=== PATIENT | female | born 1950 | race Caucasian/White ===

== ENCOUNTER 2017-04-04 09:25 | Emergency (ER) | payer BC ==
[~2017-04-04] VITALS: Ht 170.2 cm; Wt 85.0 kg
[~2017-04-04 09:25] MED LIST: ASPI-664 PO; INSU100I17 SQ; LANT3I SC; LISI2.5T59 PO; METF1000 PO; METF500T4 PO; METO-335 PO
[2017-04-04 09:28] VITALS: Ht 170.2 cm; Wt 85.0 kg
[2017-04-04] MEDS ORDERED: KETOROLAC 60 MG INJ IM STA (09:51)
--- NOTE | 2017-04-04 10:12 | ERD ---
ER Documentation Chief Complaint Chief Complaint dry cough, chest congestion and generalized body pain HPI 66y/o female patient with history of type 2 diabetes mellitus well controlled, presents to the emergency department c/o sudden onset of generalized arthralgia and malaise that started 1 day ago. The pain is dull, rated 6/10. The symptoms are probably caused by a viral illness. Aggravating factors: Strenuous physical activity. Alleviating factors: Ibuprofen and rest. Denies fever, chills, N/V/D. No recent history of previous episodes. Treatment attempted: Ibuprofen with adequate control of the pain. Previous evaluation: None. ROS SYSTEMIC symptoms: no fever, chills, no night sweats, no weight loss EYE symptoms: No blurred vision, no eye discharge OTOLARYNGEAL symptoms: No hearing loss. No ear pain, no sore throat CARDIOVASCULAR symptoms: No chest pain or discomfort, no palpitations. PULMONARY symptoms: No dyspnea, no cough, no wheezing. GASTROINTESTINAL symptoms: No abdominal pain, no nausea, no vomiting, no diarrhea MUSCULOSKELETAL symptoms: Generalized arthralgias and muscle aches. NEUROLOGY symptoms: No confusion, no syncope, no numbness or tingling. SKIN no rashes Medications Home Meds Active Scripts Ciprofloxacin Hcl* (Ciprofloxacin Hcl*) 250 Mg Tablet, 250 MG PO BID for 7 Days , #14 TAB Prov:SHERRI FRANCO MD 04/04/17 Hydrocodone/Acetaminophen ([place] 5-325 Tablet) 1 Each Tablet, 1 TAB PO Q6H Y for PAIN, #20 TAB Prov:SHERRI FRANCO MD 04/04/17 Ibuprofen* (Motrin*) 600 Mg Tab, 600 MG PO Q8, #30 TAB Prov:SHERRI FRANCO MD 04/04/17 Reported Medications Aspirin (Low Dose Aspirin) 81 Mg Tablet.dr, 162 MG PO DAILY, #30 TAB 02/12/16 Insulin Glargine* (Lantus*) 100 Unit/Ml Soln, 20 UNIT SC QHS, #1 VIAL 02/12/16 Insulin Glulisine (Apidra Solostar) 100 Unit/1 Ml Insuln.pen, 8 UNIT SQ BID, #1 TUB 02/12/16 Metformin Hcl* (Metformin Hcl*) 1,000 Mg Tablet, 1000 MG PO WITH BREAKFAST, #30 TAB 02/12/16 Metformin Hcl* (Metformin Hcl*) 500 Mg Tablet, 500 MG PO WITH LUNCH DINNER, #30 TAB 02/12/16 Lisinopril* (Lisinopril*) 2.5 Mg Tablet, 2.5 MG PO DAILY, #30 TAB 02/12/16 Metoprolol Succinate* (Toprol XL*) 25 Mg Tab.sr.24h, 25 MG PO DAILY, #30 TAB 02/12/16 Allergies Allergies: Coded Allergies: No Known Allergies (Verified Allergy, Unknown, 02/13/16) PMhx/Soc History of Surgery: Yes (CS x 1, right knee surgery) Anesthesia Reaction: No Hx Neurological Disorder: No Hx Respiratory Disorders: No Hx Cardiac Disorders: Yes (HTN) Hx Psychiatric Problems: No Hx Miscellaneous Medical Probl: No Hx Alcohol Use: No Hx Substance Use: No Hx Tobacco Use: No Smoking Status: Never smoker Physical Exam Vitals Vital Signs Date Time Temp Pulse Resp B/P Pulse Ox O2 Delivery O2 Flow Rate FiO2 04/04/17 09:28 98.6 102 18 130/58 99 Physical Exam Patient is in no acute distress, vital signs stable. Alert and fully oriented. EYES: PERRLA, EOMI, Sclera and conjunctiva appear normal. EARS: Canals clear, tympanic membranes WNL THROAT: Normal oropharynx. NECK: Supple, No lymphadenopathy. Full ROM without pain or tenderness. HEART: RRR, no rubs, murmurs, clicks or gallops. LUNGS: Clear to auscultation. ABDOMEN: Soft, non-tender without masses or hepatosplenomegaly. EXTREMITIES: No edema bilaterally. BACK: Full ROM, no deformity, normal back exam NEURO: Cranial nerves grossly intact, no motor or sensory deficit Results 24 hrs Laboratory Tests Test 04/04/17 11:05 Urine Color YELLOW Urine Clarity CLEAR Urine pH 5.0 Urine Specific Ericson 1.027 Urine Ketones 1+mg/dL Urine Nitrite NEGATIVEmg/dL Urine Bilirubin NEGATIVEmg/dL Urine Urobilinogen NEGATIVEmg/dL Urine Leukocyte Esterase TRACELeu/ul Urine Microscopic RBC 2/HPF Urine Microscopic WBC 74/HPF Urine Squamous Epithelial Cells FEW/HPF Urine Bacteria FEW/HPF Urine Mucus FEW/HPF Urine Hemoglobin NEGATIVEmg/dL Urine Glucose 3+mg/dL Urine Total Protein NEGATIVEmg/dl Current Medications Medications (Trade) Dose Ordered Sig/Abby Route PRN Reason Start Time Stop Time Status Last Admin Dose Admin Ketorolac Tromethamine (Toradol) 60 mg ONCE STAT IM 04/04/17 09:51 04/04/17 09:53 DC 04/04/17 10:00 Procedures/MDM 66y/o female patient with history of type 2 diabetes mellitus, presents to the ED c/o generalized arthralgia for 1 day. Vital signs stable, Physical exam unremarkable. Differential diagnosis include but not limited to: Influenza, viral respiratory infection, UTI, poorly controlled diabetes mellitus, dehydration, electrolyte imbalance. Pertinent Data: UA: Showed pyuria and positive leukocyte esterase Physical examination and clinical presentation consistent most likely with urinary tract infection During the ED course the patient received treatment with Toradol IM presenting overall improvement of the symptoms. Results and clinical impression discussed with the patient who agrees with management. The patient is stable to be treated outpatient and will be discharged home with a Rx for Cipro, ibuprofen 600 mg and Jasper as needed for severe pain Side effects of prescribed medications (headache, rash, nausea, vomiting, diarrhea) were reviewed. Side effects of prescribed opiates (drowsiness, habituation) were reviewed. Side effects of prescribed NSAID medication (GI distress, edema, bleeding, HTN) were reviewed. The patient was instructed to follow up with the primary care provider in the next 48h. If symptoms persist, worsen or new symptoms develop, then patient should return to the ED immediately. Instructions explained and given to patient in [Lithuanian] with acknowledgment and demonstrated understanding. Disclaimer: Inadvertent spelling and grammatical errors are likely due to EHR/ dictation software use and do not reflect on the overall quality of patient care. Also, please note that the electronic time recorded on this note does not necessarily reflect the actual time of the patient encounter. Departure Diagnosis: Primary Impression: UTI (urinary tract infection) Condition: Stable Patient Instructions: Understanding Urinary Tract Infections (UTIs) Additional Instructions: Thank you very much for allowing us to participate in your care. Your health and safety is our top priority at [facility]. Have prescriptions filled and follow precisely the directions on the label. Follow-up with primary care provider during the next 4 days and bring all the information and medications prescribed. If illness has not improved in 2 days, then make an appointment with primary care provider. If the provider is unavailable, return to the Emergency Department immediately. SHERRI FRANCO MD Apr 04, 2017 10:11
[2017-04-04] MEDS ORDERED: HYDR-906 PO (10:35)
[2017-04-04] MEDS ORDERED: IBUP-1542 PO (10:35)
[2017-04-04 12:20] LABS: ADD UMIC YES; UR ASCORBIC ACID NEGATIVE (NEGATIVE); UR BACTERIA FEW /HPF (NONE SEEN); UR BILIRUBIN (Dip) NEGATIVE (NEGATIVE); UR BLOOD (Dip) NEGATIVE (NEGATIVE); UR CLARITY CLEAR (CLEAR); UR COLOR YELLOW (YELLOW); UR GLUCOSE (Dip) 3+ mg/dL (NEGATIVE); UR KETONES (Dip) 1+ mg/dL (NEGATIVE); UR LEUKOCYTE ESTERASE (Dip) TRACE Leu/ul (NEGATIVE); UR MUCUS FEW /HPF (NONE SEEN); UR NITRITE (Dip) NEGATIVE (NEGATIVE); UR RBC 2 /HPF (0-5); UR SPECIFIC GRAVITY (Dip) 1.027 (1.003-1.030); UR SQUAMOUS EPITHELIAL CELL FEW /HPF (FEW); UR TOTAL PROTEIN (Dip) NEGATIVE (NEGATIVE); UR UROBILINOGEN (Dip) NEGATIVE (NEGATIVE)
[2017-04-04] MEDS ORDERED: CIPR-193 PO (12:35)
== END 2017-04-04 12:46 | disposition home or self-care (01) ==
LOC: FTE 09:25
DX: N39.0 Urinary tract infection, site not specified (principal); E11.9 Type 2 diabetes mellitus without complications; I10 Essential (primary) hypertension; Z79.4 Long term (current) use of insulin; Z79.82 Long term (current) use of aspirin; Z79.84 Long term (current) use of oral hypoglycemic drugs
CPT/HCPCS: 81001; 96372; J1885; Z7502

== ENCOUNTER 2018-01-18 11:32 | Day surgery (SDC) | END 2018-01-18 15:52 | disposition home or self-care (01) ==

== ENCOUNTER 2018-09-16 23:22 | Inpatient (IN) | payer OTHER, BC ==
[~2018-09-16] VITALS: Ht 170.2 cm; Wt 91.2 kg
[~2018-09-16 23:22] MED LIST changes: -ASPI-664 PO; +ASPI81TA52 PO; +HYDR-4011 PO; +INSU100I33 SC; -LANT3I SC; -METF1000 PO; +METF500T24 PO; -METF500T4 PO
--- NOTE | 2018-09-16 23:45 | ERD ---
ER Documentation Chief Complaint Chief Complaint CP x2 hours w/ mild dizziness. no SOB/n/v HPI 67-year-old woman presents with pressure-like substernal chest pain radiating to the back x2 hours beginning after eating food. She did not use her aspirin today and is worried about heart attack. She states she had mild shortness of breath, mild nausea but no vomiting, no LOC, no diaphoresis, no headache or blurry vision. Patient denies abdominal pain. ROS All systems reviewed and are negative except as per history of present illness. Medications Home Meds Reported Medications Ascorbic Acid (Vitamin C) 500 Mg Tab, 500 MG PO DAILY, TAB 09/17/18 Multivitamins* (Theragran*) 1 Tab Tab, 1 TAB PO DAILY, TAB 09/17/18 Cholecalciferol* (Vitamin D3*) 1,000 Unit Tablet, 1000 UNIT PO DAILY, TAB 09/17/18 Insulin Degludec (Tresiba Flextouch U-100) 100 Unit/1 Ml Insuln.pen, 20 UNIT SC QHS 09/17/18 Aspirin (Low Dose Aspirin) 81 Mg Tablet.dr, 162 MG PO DAILY, #30 TAB 02/12/16 Insulin Glulisine (Apidra Solostar) 100 Unit/1 Ml Insuln.pen, 8 UNIT SQ BID, #1 TUB 02/12/16 Metformin Hcl* (Metformin Hcl*) 500 Mg Tablet, 500 MG PO WITH BREAKFAST DINNE, #30 TAB 02/12/16 Lisinopril* (Lisinopril*) 2.5 Mg Tablet, 2.5 MG PO DAILY, #30 TAB 02/12/16 Metoprolol Succinate* (Toprol XL*) 25 Mg Tab.sr.24h, 25 MG PO DAILY, #30 TAB 02/12/16 Discontinued Reported Medications Insulin Glargine,Hum.rec.anlog (Basaglar Kwikpen U-100) 100 Unit/1 Ml Insuln.pen, 20 UNIT SC DAILY, EA 01/18/18 Discontinued Scripts Hydrocodone/Acetaminophen ([place] 5-325 Tablet) 1 Each Tablet, 1 TAB PO Q6H PRN for PAIN, #20 TAB Prov:SHERRI FRANCO MD 04/04/17 Allergies Allergies: Coded Allergies: No Known Allergies (Unverified Allergy, Unknown, 09/17/18) PMhx/Soc History of chest pain, hypertension, diabetes mellitus, obesity, dyslipidemia History of Surgery: Yes (RT. KNEE SX., C/S X 1) Anesthesia Reaction: No Hx Neurological Disorder: No Hx Respiratory Disorders: No Hx Cardiac Disorders: No Hx Psychiatric Problems: No Hx Miscellaneous Medical Probl: Yes (HTN, [employer] BMI) Hx Alcohol Use: Yes (SOCIALLY) Hx Substance Use: No Hx Tobacco Use: No FmHx Family History: diabetes Physical Exam Vitals Vital Signs Date Temp Pulse Resp B/P (MAP) Pulse Ox O2 O2 Flow FiO2 Time Delivery Rate 09/17/18 91 18 160/82 100 Room Air 01:12 (108) 09/16/18 94 16 159/67 97 Room Air 23:52 (97) 09/16/18 98.3 105 16 166/64 96 23:29 (98) Physical Exam GENERAL: Well-developed, well-nourished, well-hydrated, in no apparent distress, looks nontoxic in appearance HEENT: Moist mucous membranes, pink conjunctiva, no cervical spine tenderness or step-off deformities, no goiter, no jaundice or icterus, extraocular movements intact without pain. No submandibular induration, and no pharyngeal erythema NEURO: Alert and oriented 3, cranial nerves II through XII intact bilaterally, pupils equal round reactive to light, no focal deficits or facial asymmetry, sensation intact distally Strength 5/5 in upper and lower extremities bilaterally CARDIAC: Regular rate and rhythm, no murmurs rubs or gallops LUNGS: Clear bilaterally no wheezing crackles or stridor ABDOMEN: Soft nontender, no guarding, no rigidity, no rebound, no psoas sign no obturator sign. Normoactive bowel sounds SKIN: Warm and dry to touch, no abrasions, contusions, or hematomas, no lacerations, no ecchymosis, no target lesions, and without ulcers EXTREMITIES: No clubbing cyanosis or edema, calves are bilaterally symmetrical, no Homans sign, no popliteal cord sign. Distal pulses equal and bilateral PSYCH: Normal affect without agitation or irritability Result Diagram: 09/17/18 0014 09/17/18 0014 Results 24 hrs Laboratory Tests Test 09/17/18 00:14 White Blood Count 5.8 10^3/ul Red Blood Count 3.67 10^6/ul Hemoglobin 10.7 g/dl Hematocrit 32.4 % Mean Corpuscular Volume 88.3 fl Mean Corpuscular Hemoglobin 29.2 pg Mean Corpuscular Hemoglobin Concent 33.0 g/dl Red Cell Distribution Width 14.2 % Platelet Count 225 10^3/UL Mean Platelet Volume 11.9 fl Immature Granulocytes % 0.200 % Neutrophils % 61.7 % Lymphocytes % 26.1 % Monocytes % 9.6 % Eosinophils % 1.9 % Basophils % 0.5 % Nucleated Red Blood Cells % 0.0 /100WBC Immature Granulocytes # 0.010 10^3/ul Neutrophils # 3.6 10^3/ul Lymphocytes # 1.5 10^3/ul Monocytes # 0.6 10^3/ul Eosinophils # 0.1 10^3/ul Basophils # 0.0 10^3/ul Nucleated Red Blood Cells # 0.0 10^3/ul Sodium Level 142 mmol/L Potassium Level 4.3 mmol/L Chloride Level 108 mmol/L Carbon Dioxide Level 27 mmol/L Anion Gap 7 Blood Urea Nitrogen 25 mg/dl Creatinine 0.77 mg/dl Est Glomerular Filtrat Rate mL/min > 60 mL/min Glucose Level 336 mg/dl Calcium Level 9.8 mg/dl Total Bilirubin 0.2 mg/dl Direct Bilirubin 0.00 mg/dl Indirect Bilirubin 0.2 mg/dl Aspartate Amino Transf (AST/SGOT) 21 IU/L Alanine Aminotransferase (ALT/SGPT) 21 IU/L Alkaline Phosphatase 61 IU/L Troponin I < 0.012 ng/ml Total Protein 6.3 g/dl Albumin 3.8 g/dl Globulin 2.50 g/dl Albumin/Globulin Ratio 1.52 Lipase 161 U/L Current Medications Medications Dose Sig/Abby Start Time Status Last (Trade) Ordered Route PRN Stop Time Admin Dose Reason Admin Aspirin 324 mg ONCE ONCE 09/17/18 DC 09/17/18 (Aspirin) PO 00:30 09/17/18 00:15 00:31 Sodium 500 ml @ Q1H STAT 09/17/18 DC 09/17/18 Chloride 500 mls/hr IV 00:06 09/17/18 00:16 01:05 Ketorolac 15 mg ONCE STAT 09/17/18 DC 09/17/18 Tromethamine IV 00:06 09/17/18 00:16 (Toradol) 00:07 Procedures/MDM IV line was established patient was placed on shelter monitor rhythm strip revealed a sinus tachycardia at 100 bpm with upright P and T waves. Patient was afebrile EKG performed, read by me revealed a sinus tachycardia at 100 bpm, normal axis, narrow QRS complex, no concerning ST elevations or depressions noted One AP view of the chest performed, read by me reveals no acute infiltrates, normal mediastinum, sharp costophrenic and cardiac borders, no air under the diaphragm. Otherwise unremarkable chest x-ray. Administered aspirin 324 mg p.o. for cardioprotective measures, 500 cc normal saline IV, Toradol 15 mg IV CBC and electrolytes are normal, liver function tests are normal, troponin was negative Patient will be admitted to telemetry setting for continued medical management and cardiology consultation, further interventions, imaging studies, and obtaining specialist consultations deferred to admitting physician Dr Clayton Departure Diagnosis: Primary Impression: Chest pain Chest pain type: unspecified Qualified Codes: R07.9 - Chest pain, unspecified Condition: TITUS Alejandro MD September 16, 2018 23:45
[2018-09-17] VITALS (11 sets, daily range): BP systolic 103–138; BP diastolic 53–64; PULSE 66–92; RESP 16–21; Ht 170.2 cm; Wt 91.2 kg
[2018-09-17] MEDS ORDERED: KETOROLAC 15 MG INJ IV STA (00:06)
[2018-09-17] MEDS ORDERED: SOD CHLORIDE 0.9% 500 ML IV STA (00:06)
[2018-09-17] MEDS ORDERED: ASPIRIN 81 MG TAB PO ONE (00:30)
[2018-09-17] MEDS ORDERED: INSU100I31 SC (01:58)
[2018-09-17] MEDS ORDERED: CHOL100062 PO (01:58)
[2018-09-17] MEDS ORDERED: MULTI PO (01:58)
[2018-09-17] MEDS ORDERED: ASC500 PO (01:58)
[2018-09-17] MEDS ORDERED: GLUCAGON 1 MG INJ IM PRN (04:30)
[2018-09-17] MEDS ORDERED: DEXTROSE 50% 50 ML SYRINGE IV PRN ×2 (04:30)
[2018-09-17] MEDS ORDERED: GLUCOSE GEL 15 GRAM TUBE PO PRN ×2 (04:30)
[2018-09-17] MEDS ORDERED: GLUCOSE GEL 15 GRAM TUBE BUCCAL PRN (04:30)
[2018-09-17] MEDS: INSULIN ASPART [NOVOLOG] 3 ML PEN SC SCH ×4 (07:54→20:56)
[2018-09-17] MEDS: ASPIRIN (EC) 81 MG TAB PO SCH (08:18)
[2018-09-17] MEDS: LISINOPRIL 5 MG TAB PO SCH (08:19)
--- NOTE | 2018-09-17 08:51 | HP ---
DATE OF ADMISSION: 09/17/2018 CHIEF COMPLAINT: Chest pain. HISTORY OF PRESENT ILLNESS: A 67-year-old female with a history of hypertension and type 2 diabetes mellitus who presented to the Emergency Room with complaint of substernal chest heaviness radiating t o her back and lasting about 2 hours after she had dinner at home. This was associated with shortnes s of breath and mild nausea. No vomiting or diaphoresis. The patient denies any previous cardiac hi story. Initial troponin was normal, but repeat troponin was elevated at 0.26. PAST MEDICAL HISTORY: 1. Hypertension. 2. Type 2 diabetes mellitus. PAST SURGICAL HISTORY: Right knee surgery. MEDICATIONS PRIOR TO ADMISSION: 1. Ascorbic acid. 2. Multivitamin. 3. Vitamin D. 4. Insulin. 5. Aspirin. 6. Metformin. 7. Lisinopril. 8. Metoprolol. ALLERGIES: Patient has no known drug allergies. SOCIAL HISTORY: The patient lives at home. She denies tobacco or alcohol use. PHYSICAL EXAMINATION: GENERAL: Well-developed, well-nourished female who is in no apparent distress. VITAL SIGNS: Stable. She is afebrile. HEENT: Extraocular muscles intact. Pupils equal and reactive to light bilaterally. Sclerae are ani cteric. Oropharynx is clear and moist. NECK: Supple, no JVD, no carotid bruits. LUNGS: Clear to auscultation bilaterally. CARDIAC: Regular rate and rhythm. No murmurs, rubs or gallops. ABDOMEN: Soft, nontender, nondistended, normoactive bowel sounds. EXTREMITIES: No clubbing, cyanosis, or edema. NEUROLOGICAL: Nonfocal. LABORATORY DATA: WBC 5.8. Hemoglobin 10.7. Basic metabolic panel is within normal limits. Glucose is elevated at 33 6. First troponin was less than 0.012, repeat troponin was 0.263. ASSESSMENT: 1. A 67-year-old female with acute non-ST elevation myocardial infarction. 2. Hypertension. 3. Type 2 diabetes mellitus. 4. Obesity. PLAN: 1. Admit to telemetry. 2. Resume selective home medications. 3. Cardiology consultation was requested. 4. Keep n.p.o. in anticipation of coronary angiography. Dictated By: DYLON PALMER/DIOR Conf#: [id number] [facility]#: [id number]
[2018-09-17] MEDS ORDERED: METOPROLOL (XL) 25 MG TAB PO SCH (09:00)
[2018-09-17] MEDS: METOPROLOL (XL) 50 MG TAB PO SCH (09:00)
--- NOTE | 2018-09-17 11:24 | CONS ---
Assessment/Plan Assessment/Plan Assessment/Plan (Daily) Assessment HTN HLP NSTEMI Sinus tachy Plan: ASA start statin echo pending venous duplex cath/PCI, dw her in detail benefits and risks and risks of delay, she fully understands and agrees Consultation Date/Type/Reason Admit Date/Time September 17, 2018 at 00:58 Type of Consult Cardiology Date/Time of Note DATE: 09/17/18 TIME: 11:21 Hx of Present Illness admitted with chest pain, found to have elevated troponins, currently free of complaints Constitutional: no complaints Respiratory: no complaints Cardiovascular: no complaints Gastrointestinal: no complaints Musculoskeletal: no complaints Skin: no complaints Neurologic: no complaints Endocrine: no complaints Past Medical History Medical History: diabetes, high cholesterol, hypertension Home Meds Reported Medications Ascorbic Acid (Vitamin C) 500 Mg Tab, 500 MG PO DAILY, TAB 09/17/18 Multivitamins* (Theragran*) 1 Tab Tab, 1 TAB PO DAILY, TAB 09/17/18 Cholecalciferol* (Vitamin D3*) 1,000 Unit Tablet, 1000 UNIT PO DAILY, TAB 09/17/18 Insulin Degludec (Tresiba Flextouch U-100) 100 Unit/1 Ml Insuln.pen, 20 UNIT SC QHS 09/17/18 Aspirin (Low Dose Aspirin) 81 Mg Tablet.dr, 162 MG PO DAILY, #30 TAB 02/12/16 Insulin Glulisine (Apidra Solostar) 100 Unit/1 Ml Insuln.pen, 8 UNIT SQ BID, #1 TUB 02/12/16 Metformin Hcl* (Metformin Hcl*) 500 Mg Tablet, 500 MG PO WITH BREAKFAST DINNE, #30 TAB 02/12/16 Lisinopril* (Lisinopril*) 2.5 Mg Tablet, 2.5 MG PO DAILY, #30 TAB 02/12/16 Metoprolol Succinate* (Toprol XL*) 25 Mg Tab.sr.24h, 25 MG PO DAILY, #30 TAB 02/12/16 Discontinued Reported Medications Insulin Glargine,Hum.rec.anlog (Basaglar Kwikpen U-100) 100 Unit/1 Ml Insuln.pen, 20 UNIT SC DAILY, EA 01/18/18 Discontinued Scripts Hydrocodone/Acetaminophen ([place] 5-325 Tablet) 1 Each Tablet, 1 TAB PO Q6H PRN for PAIN, #20 TAB Prov:CUEVAS-MYRICK,SHERRI MD 04/04/17 Medications Current Medications Diagnostic Test (Pha) (Accu-Chek) 1 ea 02 XX ; Start 09/18/18 at 02:00 Insulin Aspart (Novolog Insulin Pen) NOVOLOG *MODERATE* ALGORITHM WITH MEALS BEDTIME SC ; Start 09/17/18 at 08:00 Aspirin (Halfprin) 162 mg DAILY PO Last administered on 09/17/18at 08:18; Admin Dose 162 MG; Start 09/17/18 at 09:00 Lisinopril (Zestril) 2.5 mg DAILY PO Last administered on 09/17/18at 08:19; Admin Dose 2.5 MG; Start 09/17/18 at 09:00 Miscellaneous Information 1 ea NOTE XX ; Start 09/17/18 at 04:30 Glucose (Glutose) 15 gm Q15M PRN PO DECREASED GLUCOSE; Start 09/17/18 at 04:30 Glucose (Glutose) 22.5 gm Q15M PRN PO DECREASED GLUCOSE; Start 09/17/18 at 04:30 Dextrose (D50w Syringe) 25 ml Q15M PRN IV DECREASED GLUCOSE; Start 09/17/18 at 04:30 Dextrose (D50w Syringe) 50 ml Q15M PRN IV DECREASED GLUCOSE; Start 09/17/18 at 04:30 Glucagon (Glucagen) 1 mg Q15M PRN IM DECREASED GLUCOSE; Start 09/17/18 at 04:30 Glucose (Glutose) 15 gm Q15M PRN BUCCAL DECREASED GLUCOSE; Start 09/17/18 at 04:30 Metoprolol Succinate (Toprol Xl) 50 mg DAILY PO ; Start 09/17/18 at 09:00 Atorvastatin Calcium (Lipitor) 40 mg HS PO ; Start 09/17/18 at 21:00 Allergies: Coded Allergies: No Known Allergies (Unverified Allergy, Unknown, 09/17/18) Family History Significant Family History: hypertension Social History Smoking Status: Never smoker Exam/Review of Systems Vital Signs Vitals Vital Signs Date Temp Pulse Resp B/P (MAP) Pulse Ox O2 O2 Flow FiO2 Time Delivery Rate 09/17/18 83 08:01 09/17/18 98.0 16 131/62 95 Room Air 07:28 (85) Intake and Output 09/16/18 09/16/18 09/17/18 1515:00 23:00 07:00 IntakeIntake Total 0 ml BalanceBalance 0 ml Exam Constitutional: alert, oriented Head: normocephalic, atraumatic Neck: supple Respiratory: clear to auscultation Cardiovascular: regular rate and rhythm Gastrointestinal: soft Musculoskeletal: nl extremities to inspection Extremities: normal pulses Labs Result Diagram: 09/17/18 0014 09/17/18 0014 Results 24hrs Laboratory Tests Test 09/17/18 00:14 09/17/18 05:10 09/17/18 07:53 09/17/18 08:32 White Blood Count 5.8 Red Blood Count 3.67 L Hemoglobin 10.7 L Hematocrit 32.4 L Mean Corpuscular Volume 88.3 Mean Corpuscular 29.2 Hemoglobin Mean Corpuscular 33.0 Hemoglobin Concent Red Cell Distribution 14.2 Width Platelet Count 225 Mean Platelet Volume 11.9 H Immature Granulocytes % 0.200 Neutrophils % 61.7 Lymphocytes % 26.1 Monocytes % 9.6 Eosinophils % 1.9 Basophils % 0.5 Nucleated Red Blood 0.0 Cells % Immature Granulocytes # 0.010 Neutrophils # 3.6 Lymphocytes # 1.5 Monocytes # 0.6 Eosinophils # 0.1 Basophils # 0.0 Nucleated Red Blood 0.0 Cells # Sodium Level 142 Potassium Level 4.3 Chloride Level 108 Carbon Dioxide Level 27 Anion Gap 7 Blood Urea Nitrogen 25 H Creatinine 0.77 Est Glomerular Filtrat > 60 Rate mL/min Glucose Level 336 H Calcium Level 9.8 Total Bilirubin 0.2 Direct Bilirubin 0.00 Indirect Bilirubin 0.2 Aspartate Amino 21 Transf (AST/SGOT) Alanine 21 Aminotransferase (ALT/SG PT) Alkaline Phosphatase 61 Troponin I < 0.012 0.263 *H 0.997 *H Total Protein 6.3 Albumin 3.8 Globulin 2.50 Albumin/Globulin Ratio 1.52 Lipase 161 Bedside Glucose 251 H Imaging Imaging EKG: Sinus tach, non specific changes Medications Medications Current Medications Diagnostic Test (Pha) (Accu-Chek) 1 XX ; Start 09/18/18 at 02:00 Insulin Aspart (Novolog Insulin Pen) NOVOLOG *MODERATE* ALGORITHM WITH MEALS BEDTIME SC ; Start 09/17/18 at 08:00 Aspirin (Halfprin) 162 mg DAILY PO Last administered on 09/17/18at 08:18; Admin Dose 162 MG; Start 09/17/18 at 09:00 Lisinopril (Zestril) 2.5 mg DAILY PO Last administered on 09/17/18at 08:19; Admin Dose 2.5 MG; Start 09/17/18 at 09:00 Miscellaneous Information 1 ea NOTE XX ; Start 09/17/18 at 04:30 Glucose (Glutose) 15 gm Q15M PRN PO DECREASED GLUCOSE; Start 09/17/18 at 04:30 Glucose (Glutose) 22.5 gm Q15M PRN PO DECREASED GLUCOSE; Start 09/17/18 at 04:30 Dextrose (D50w Syringe) 25 ml Q15M PRN IV DECREASED GLUCOSE; Start 09/17/18 at 04:30 Dextrose (D50w Syringe) 50 ml Q15M PRN IV DECREASED GLUCOSE; Start 09/17/18 at 04:30 Glucagon (Glucagen) 1 mg Q15M PRN IM DECREASED GLUCOSE; Start 09/17/18 at 04:30 Glucose (Glutose) 15 gm Q15M PRN BUCCAL DECREASED GLUCOSE; Start 09/17/18 at 04:30 Metoprolol Succinate (Toprol Xl) 50 mg DAILY PO ; Start 09/17/18 at 09:00 Atorvastatin Calcium (Lipitor) 40 mg HS PO ; Start 09/17/18 at 21:00 ASIM GODINEZ MD September 17, 2018 11:24
--- NOTE | 2018-09-17 15:53 | RADRPT ---
Echocardiogram Report Patient Name: Perry FLOWERnt ID: [id number] : 1950 (67y 10m)Study Date: 09/17/2018 10:57:11 AM Gender: FAccession #: [id number] Tech: Ang Santiago [facility] Location: [facility] Ref.Physician: ASIM GODINEZ Height(Cm): BSA: Weight(Kg): Quality: AdequateAccount #: Procedures: Echocardiographic Report: Transthoracic echocardiogram with complete 2D, M-Mode, and doppler examination. Indications: Chest Pain. Measurements: 2D/M Mode Doppler Measurement Value Normal Range Measurement Value Normal Range LVIDd 2D 4.4 [ 3.8 - 5.2 ] cm AV Peak Everardo 1.1 [ 100.0 - 170.0 ] cm/sec LVIDs 2D 2.8 [ 2.2 - 3.5 ] cm AV Peak PG 5.0 [ 2.0 - 9.0 ] mmHg LVPWd 2D 1.3 [ 0.6 - 0.9 ] cm LVOT Peak Everardo 1.0 [ 70.0 - 110.0 ] cm/sec IVSd 2D 1.4 [ 0.6 - 0.9 ] cm LVOT Peak PG 4.0 [ 2.0 - 6.0 ] mmHg AoR Diam 2D 2.7 [ 2.3 - 3.1 ] cm MV E Peak Everardo 0.9 [ 60.0 - 130.0 ] cm/sec EDV 2D 88.6 [ 46.0 - 106.0 ] ml MV A Peak Everardo 1.0 [ 100.0 - 120.0 ] cm/sec ESV 2D 30.9 [ 14.0 - 42.0 ] ml MV E/A 0.9 [ 0.8 - 1.5 ] ratio EF 2D 65.1 [ 54.0 - 74.0 ] percent MV Decel Time 194 [ 104 - 258 ] msec LA Dimen 2D 4.3 [ 2.7 - 3.8 ] cm Lat E` Everardo 0.1 [ 10.0 - 15.0 ] cm/sec Lateral E/E` 9.1 [ 1.0 - 2.0 ] ratio MV E/A 0.9 [ 0.8 - 1.5 ] ratio TR Peak Everardo 3.0 [ 100.0 - 280.0 ] cm/sec TR Peak PG 35.0 mmHg RVSP 43.0 [ 10.0 - 36.0 ] mmHg Findings: Left Ventricle: Normal left ventricular systolic function. Normal left ventricular cavity size. Mild concentric left ventricular hypertrophy. Ejection fraction is visually estimated at 60 %. Tissue Doppler/Mitral Doppler indices are consistent with impaired relaxation (Stage I diastolic dysfunction). Right Ventricle: Normal right ventricular size. Normal right ventricular systolic function. Left Atrium: There is mild enlargement of left atrium. Right Atrium: The right atrium is normal in size. Mitral Valve: Mild mitral leaflet calcification. Mild mitral annular calcification. Trace mitral regurgitation. Aortic Valve: No hemodynamically significant aortic stenosis by doppler. Aortic cusps appear mildly calcified. Trace aortic valve regurgitation. Tricuspid Valve: Normal appearance of the tricuspid valve. Estimated peak PA systolic pressure 43 mmHg. There is mild tricuspid regurgitation. Pericardium: Normal pericardium with no significant pericardial effusion. Aorta: Normal aortic root. IVC: Dilated IVC with respiratory collapse consistent with elevated right atrial pressure. Conclusions: Mild concentric left ventricular hypertrophy with normal systolic function. Grade 1 diastolic dysfunction. Mitral annular calcification and trace mitral regurgitation. Trace aortic regurgitation. Mild tricuspid regurgitation and mild pulmonary hypertension. Dilated IVC suggests elevated right atrial pressure. Electronically Signed By: Kaylie Slaughter 2018-09-17 15:52:39 PDT
[2018-09-17] MEDS ORDERED: DIAZEPAM 5 MG TAB PO ONE (16:00)
[2018-09-17] MEDS ORDERED: DIPHENHYDRAMINE 50 MG CAP PO ONE (16:00)
[2018-09-17] MEDS: ACETAMINOPHEN 325 MG TAB PO PRN (16:42)
[2018-09-17] MEDS: ATORVASTATIN 40 MG TAB PO SCH (20:49)
[2018-09-18] VITALS (11 sets, daily range): BP systolic 127–137; BP diastolic 59–68; PULSE 63–85; RESP 18–20
[2018-09-18] MEDS ORDERED: SOD CHLORIDE 0.9% 1,000 ML IV SCH (01:00)
[2018-09-18] MEDS: ACCU-CHEK XX SCH (02:00)
[2018-09-18] MEDS: ACETAMINOPHEN 325 MG TAB PO PRN (03:48)
[2018-09-18] MEDS: ASPIRIN (EC) 81 MG TAB PO SCH (08:20)
[2018-09-18] MEDS: LISINOPRIL 5 MG TAB PO SCH (08:20)
[2018-09-18] MEDS: METOPROLOL (XL) 50 MG TAB PO SCH (08:21)
[2018-09-18] MEDS: INSULIN ASPART [NOVOLOG] 3 ML PEN SC SCH ×4 (08:26→20:51)
--- NOTE | 2018-09-18 09:37 | PN ---
Date/Time of Note Date/Time of Note DATE: 09/18/18 TIME: 09:35 Subjective Doing well. No further chest pain. No shortness of breath. Objective Vitals Vital Signs Date Temp Pulse Resp B/P (MAP) Pulse Ox O2 O2 Flow FiO2 Time Delivery Rate 09/18/18 63 08:01 09/18/18 98.0 20 137/68 98 07:24 (91) 09/17/18 Room Air 15:08 Intake and Output 09/17/18 09/17/18 09/18/18 1515:00 23:00 07:00 IntakeIntake Total 720 ml 300 ml BalanceBalance 720 ml 300 ml Clear to auscultation bilaterally Regular rate and rhythm. No murmurs or gallops. Soft, nontender, nondistended normoactive bowel sounds No edema Nonfocal Results Result Diagram: 09/18/1821 09/18/18520 Medications Medications Current Medications Diagnostic Test (Pha) (Accu-Chek) 1 ea 02 XX ; Start 09/18/18 at 02:00 Insulin Aspart (Novolog Insulin Pen) NOVOLOG *MODERATE* ALGORITHM WITH MEALS BEDTIME SC Last administered on 09/18/18at 08:26; Admin Dose 6 UNIT; Start 09/17/18 at 08:00 Aspirin (Halfprin) 162 mg DAILY PO Last administered on 09/18/18at 08:20; Admin Dose 162 MG; Start 09/17/18 at 09:00 Lisinopril (Zestril) 2.5 mg DAILY PO Last administered on 09/18/18at 08:20; Admin Dose 2.5 MG; Start 09/17/18 at 09:00 Miscellaneous Information 1 ea NOTE XX ; Start 09/17/18 at 04:30 Glucose (Glutose) 15 gm Q15M PRN PO DECREASED GLUCOSE; Start 09/17/18 at 04:30 Glucose (Glutose) 22.5 gm Q15M PRN PO DECREASED GLUCOSE; Start 09/17/18 at 04:30 Dextrose (D50w Syringe) 25 ml Q15M PRN IV DECREASED GLUCOSE; Start 09/17/18 at 04:30 Dextrose (D50w Syringe) 50 ml Q15M PRN IV DECREASED GLUCOSE; Start 09/17/18 at 04:30 Glucagon (Glucagen) 1 mg Q15M PRN IM DECREASED GLUCOSE; Start 09/17/18 at 04:30 Glucose (Glutose) 15 gm Q15M PRN BUCCAL DECREASED GLUCOSE; Start 09/17/18 at 04:30 Metoprolol Succinate (Toprol Xl) 50 mg DAILY PO Last administered on 09/18/18at 08:21; Admin Dose 50 MG; Start 09/17/18 at 09:00 Atorvastatin Calcium (Lipitor) 40 mg HS PO Last administered on 09/17/18at 20:49; Admin Dose 40 MG; Start 09/17/18 at 21:00 Sodium Chloride 1,000 ml @ 75 mls/hr [id number] IV ; Start 09/19/18 at 01:00 Acetaminophen (Tylenol Tab) 650 mg Q4H PRN PO MILD PAIN(1-3)OR ELEVATED TEMP Last administered on 09/18/18at 03:48; Admin Dose 650 MG; Start 09/17/18 at 16:28 VTE Prophylaxis Risk score (from Ns)>0 risk: 4 SCD applied (from Ns): Yes Lines/Catheters IV Catheter Type: Saline Lock Méndez in Place: No Assessment/Plan Assessment/Plan 67-year-old female with acute non-STEMI Hypertension Hyperlipidemia Normal LV function on echo Proceed with coronary angiography in a.m. 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 after midnight Case was discussed with lease administrator DYLON NOLAN MD September 18, 2018 09:37
[2018-09-18] MEDS ORDERED: INSULIN GLARGINE [LANTus] (100 UNITS/ML) SYG SC ONE (11:30)
--- NOTE | 2018-09-18 13:47 | CONS ---
Consultation Date/Type/Reason Admit Date/Time September 17, 2018 at 00:58 Initial Consult Date Type of Consult Cardiology Date/Time of Note DATE: 09/18/18 TIME: 13:45 24 HR Interval Summary Free Text/Dictation Assessment HTN HLP NSTEMI Sinus tachy preserved EF Plan: ASA start statin venous duplex cath/PCI, in AM with Dr. Slaughter Constitutional: no complaints Exam/Review of Systems Vital Signs Vitals Vital Signs Date Temp Pulse Resp B/P (MAP) Pulse Ox O2 O2 Flow FiO2 Time Delivery Rate 09/18/18 67 12:01 09/18/18 98.0 18 127/59 97 11:39 (81) 09/17/18 Room Air 15:08 Intake and Output 09/17/18 09/17/18 09/18/18 1515:00 23:00 07:00 IntakeIntake Total 720 ml 300 ml BalanceBalance 720 ml 300 ml Exam Constitutional: alert, oriented Respiratory: clear to auscultation Cardiovascular: regular rate and rhythm Extremities: No edema Labs Result Diagram: 09/18/18 0521 09/18/18 0521 Results 24hrs Laboratory Tests Test 09/17/18 17:07 09/17/18 20:48 09/18/18 02:13 09/18/18 05:21 Bedside Glucose 180 270 H 244 H White Blood Count 5.3 Red Blood Count 3.69 L Hemoglobin 10.8 L Hematocrit 32.8 L Mean Corpuscular Volume 88.9 Mean Corpuscular 29.3 Hemoglobin Mean Corpuscular 32.9 Hemoglobin Concent Red Cell Distribution 14.0 Width Platelet Count 204 Mean Platelet Volume 12.3 H Immature Granulocytes % 0.200 Neutrophils % 54.3 Lymphocytes % 30.8 Monocytes % 11.1 H Eosinophils % 3.0 Basophils % 0.6 Nucleated Red Blood 0.0 Cells % Immature Granulocytes # 0.010 Neutrophils # 2.9 Lymphocytes # 1.6 Monocytes # 0.6 Eosinophils # 0.2 Basophils # 0.0 Nucleated Red Blood 0.0 Cells # Sodium Level 140 Potassium Level 4.6 Chloride Level 109 Carbon Dioxide Level 27 Anion Gap 4 L Blood Urea Nitrogen 18 Creatinine 0.63 Est Glomerular Filtrat > 60 Rate mL/min Glucose Level 234 #H Hemoglobin A1c 8.1 H Calcium Level 9.1 Triglycerides Level 70 Cholesterol Level 117 LDL Cholesterol, 49 Calculated HDL Cholesterol 54 Cholesterol/HDL Ratio 2.1 Test 09/18/18 08:18 09/18/18 11:57 Bedside Glucose 249 H 238 H Medications Medications Current Medications Diagnostic Test (Pha) (Accu-Chek) 1 ea 02 XX ; Start 09/18/18 at 02:00 Insulin Aspart (Novolog Insulin Pen) NOVOLOG *MODERATE* ALGORITHM WITH MEALS BEDTIME SC Last administered on 09/18/18at 12:01; Admin Dose 6 UNIT; Start 09/17/18 at 08:00 Aspirin (Halfprin) 162 mg DAILY PO Last administered on 09/18/18at 08:20; Admin Dose 162 MG; Start 09/17/18 at 09:00 Lisinopril (Zestril) 2.5 mg DAILY PO Last administered on 09/18/18 08:20; Admin Dose 2.5 MG; Start 09/17/18 at 09:00 Miscellaneous Information 1 ea NOTE XX ; Start 09/17/18 at 04:30 Glucose (Glutose) 15 gm Q15M PRN PO DECREASED GLUCOSE; Start 09/17/18 at 04:30 Glucose (Glutose) 22.5 gm Q15M PRN PO DECREASED GLUCOSE; Start 09/17/18 at 04:30 Dextrose (D50w Syringe) 25 ml Q15M PRN IV DECREASED GLUCOSE; Start 09/17/18 at 04:30 Dextrose (D50w Syringe) 50 ml Q15M PRN IV DECREASED GLUCOSE; Start 09/17/18 at 04:30 Glucagon (Glucagen) 1 mg Q15M PRN IM DECREASED GLUCOSE; Start 09/17/18 at 04:30 Glucose (Glutose) 15 gm Q15M PRN BUCCAL DECREASED GLUCOSE; Start 09/17/18 at 04:30 Metoprolol Succinate (Toprol Xl) 50 mg DAILY PO Last administered on 09/18/18at 08:21; Admin Dose 50 MG; Start 09/17/18 at 09:00 Atorvastatin Calcium (Lipitor) 40 mg HS PO Last administered on 09/17/18at 20:49; Admin Dose 40 MG; Start 09/17/18 at 21:00 Sodium Chloride 1,000 ml @ 75 mls/hr [id number] IV ; Start 09/19/18 at 01:00 Acetaminophen (Tylenol Tab) 650 mg Q4H PRN PO MILD PAIN(1-3)OR ELEVATED TEMP Last administered on 09/18/18at 03:48; Admin Dose 650 MG; Start 09/17/18 at 16:28 KJ GARCÍA MD September 18, 2018 13:47
[2018-09-18] MEDS: ATORVASTATIN 40 MG TAB PO SCH (20:16)
[2018-09-19] VITALS (41 sets, daily range): BP systolic 94–156; BP diastolic 40–73; PULSE 66–86; RESP 13–20
[2018-09-19] MEDS: SOD CHLORIDE 0.9% 1,000 ML IV SCH ×2 (00:52→14:55)
[2018-09-19] MEDS: ACCU-CHEK XX SCH (02:00)
[2018-09-19] MEDS ORDERED: HEPARIN 1000 UNITS/ML 10 ML INJ ONE (06:54)
[2018-09-19] MEDS ORDERED: LIDOCAINE 1% (MDV) 20 ML INJ ONE (06:54)
[2018-09-19] MEDS ORDERED: IOHEXOL 350MG/ML 50 ML BTL ONE (06:54)
[2018-09-19] MEDS ORDERED: FENTAnyl 50 MCG/ML VIAL ONE (06:54)
[2018-09-19] MEDS ORDERED: MIDAZOLAM 1 MG/ML 2 ML INJ ONE (06:54)
[2018-09-19] MEDS ORDERED: IODIXANOL LOCM 100 ML BTL ONE (06:54)
[2018-09-19] MEDS ORDERED: NITROGLYCERIN (IC) 100 MCG/ML INJ ONE (06:55)
[2018-09-19] MEDS ORDERED: SOD CHLORIDE 0.9% 500 ML ONE (06:56)
[2018-09-19] MEDS ORDERED: ASPIRIN 81 MG TAB PO ONE (07:00)
[2018-09-19] MEDS ORDERED: VERAPAMIL 5 MG INJ ONE (07:14)
[2018-09-19] MEDS ORDERED: TICAGRELOR 90 MG TABLET ONE (08:10)
[2018-09-19] MEDS ORDERED: ASPIRIN 81 MG TAB ONE (08:10)
--- NOTE | 2018-09-19 08:25 | CONS ---
Assessment/Plan Assessment/Plan Hospital Course (Demo Recall) 67 yo with diabetes, presenting with NSTEMI. Today underwent coronary angiography with placement of a drug-eluting Synergy 2.5x12 mm stent to the ostial D1 with good result. Impression: NSTEMI Diabetes, uncontrolled Obesity Recommendations: DAPT with ticagrelor and asa x 1 year Needs better DM control Atorvastatin, beta anay, HUNG/ARB Discussed lifestyle -- exercise, healthy diet, wt loss Anticipate discharge tomorrow with follow-up with [facility] as an outpatient Consultation Date/Type/Reason Admit Date/Time September 17, 2018 at 00:58 Initial Consult Date Type of Consult Cardiology Requesting Provider: DYLON NOLAN MD Date/Time of Note DATE: 09/19/18 TIME: 08:20 24 HR Interval Summary Free Text/Dictation No further chest pain, no dyspnea. Patient seen in [facility]. Underwent PCI with drug-eluting stent placement to ostial first diagonal branch. Exam/Review of Systems Vital Signs Vitals Vital Signs Date Temp Pulse Resp B/P (MAP) Pulse Ox O2 O2 Flow FiO2 Time Delivery Rate 09/19/18 72 04:00 09/19/18 97.9 18 152/70 96 Room Air 03:40 (97) Intake and Output 09/18/18 09/18/18 09/19/18 1515:00 23:00 07:00 IntakeIntake Total 750 ml 300 ml BalanceBalance 750 ml 300 ml Exam Constitutional: alert, oriented, other (obese) Psych: nl mood/affect Head: normocephalic, atraumatic Eyes: EOMI, nl lids, nl sclera ENMT: nl external ears & nose, nl lips & teeth Neck: supple; No jvd, No bruits Respiratory: clear to auscultation, normal air movement Cardiovascular: regular rate and rhythm, nl pulses; No murmurs/extra sounds Gastrointestinal: soft, non-tender Musculoskeletal: nl extremities to inspection Extremities: normal pulses; No edema Neurological: nl mental status, nl speech Skin: No rash or lesions Labs Result Diagram: 09/19/18 0709/19/18 0706 Results 24hrs Laboratory Tests Test 09/18/18 11:57 09/18/18 17:06 09/18/18 20:15 09/19/18 02:05 Bedside Glucose 238 H 185 253 H 183 Test 09/19/18 07:06 White Blood Count 6.0 Red Blood Count 4.29 Hemoglobin 12.3 Hematocrit 37.8 Mean Corpuscular Volume 88.1 Mean Corpuscular 28.7 L Hemoglobin Mean Corpuscular 32.5 Hemoglobin Concent Red Cell Distribution 14.1 Width Platelet Count 237 Mean Platelet Volume 11.6 H Immature Granulocytes % 0.200 Neutrophils % 60.3 Lymphocytes % 27.9 Monocytes % 9.1 Eosinophils % 2.0 Basophils % 0.5 Nucleated Red Blood 0.0 Cells % Immature Granulocytes # 0.010 Neutrophils # 3.6 Lymphocytes # 1.7 Monocytes # 0.6 Eosinophils # 0.1 Basophils # 0.0 Nucleated Red Blood 0.0 Cells # Sodium Level 143 Potassium Level 3.9 Chloride Level 108 Carbon Dioxide Level 28 Anion Gap 7 Blood Urea Nitrogen 14 Creatinine 0.68 Est Glomerular Filtrat > 60 Rate mL/min Glucose Level 208 Calcium Level 9.5 Medications Medications Current Medications Diagnostic Test (Pha) (Accu-Chek) 1 ea 02 XX ; Start 09/18/18 at 02:00 Insulin Aspart (Novolog Insulin Pen) NOVOLOG *MODERATE* ALGORITHM WITH MEALS BEDTIME SC Last administered on 09/18/18at 20:51; Admin Dose 2 UNIT; Start 09/17 at 08:00 Aspirin (Halfprin) 162 mg DAILY PO Last administered on 09/18/18at 08:20; Admin Dose 162 MG; Start 09/17/18 at 09:00 Lisinopril (Zestril) 2.5 mg DAILY PO Last administered on 09/18/18at 08:20; Admin Dose 2.5 MG; Start 09/17/18 at 09:00 Miscellaneous Information 1 ea NOTE XX ; Start 09/17/18 at 04:30 Glucose (Glutose) 15 gm Q15M PRN PO DECREASED GLUCOSE; Start 09/17/18 at 04:30 Glucose (Glutose) 22.5 gm Q15M PRN PO DECREASED GLUCOSE; Start 09/17/18 at 04:30 Dextrose (D50w Syringe) 25 ml Q15M PRN IV DECREASED GLUCOSE; Start 09/17/18 at 04:30 Dextrose (D50w Syringe) 50 ml Q15M PRN IV DECREASED GLUCOSE; Start 09/17/18 at 04:30 Glucagon (Glucagen) 1 mg Q15M PRN IM DECREASED GLUCOSE; Start 09/17/18 at 04:30 Glucose (Glutose) 15 gm Q15M PRN BUCCAL DECREASED GLUCOSE; Start 09/17/18 at 04:30 Metoprolol Succinate (Toprol Xl) 50 mg DAILY PO Last administered on 09/18/18at 08:21; Admin Dose 50 MG; Start 09/17/18 at 09:00 Atorvastatin Calcium (Lipitor) 40 mg HS PO Last administered on 09/18/18at 20:16; Admin Dose 40 MG; Start 09/17/18 at 21:00 Sodium Chloride 1,000 ml @ 75 mls/hr [id number] IV Last administered on 09/19/18at 00:52; Admin Dose 75 MLS/HR; Start 09/19/18 at 01:00 Acetaminophen (Tylenol Tab) 650 mg Q4H PRN PO MILD PAIN(1-3)OR ELEVATED TEMP Last administered on 09/18/18at 03:48; Admin Dose 650 MG; Start 09/17/18 at 16:28 EDDIE MCDANIELS September 19, 2018 08:25
[2018-09-19] MEDS ORDERED: SOD CHLORIDE 0.9% 1,000 ML IV SCH (08:29)
--- NOTE | 2018-09-19 08:40 | OPR ---
Date/Time of Note Date/Time of Note DATE: 09/19/18 TIME: 08:35 Operative Report Procedure Date: September 19, 2018 Preoperative Diagnosis NSTEMI Postoperative Diagnosis CAD Operation/Procedure Performed coronary angiography, left heart cath, left ventriculography, pci with stent to the ostial D1, moderate sedation Surgeon see signature line Telephone Sales Representative Adryan MORGAN Anesthesia Type: moderate sedation Estimated Blood Loss: 50 - 100 ml's Transfusion none Specimen none Grafts/Implants Synergy 2.5x12 mm stent to ostial D1 Complications none Pt Condition Post Procedure: stable Disposition: PACU Indications 67 yo diabetic with NSTEMI Procedure Description Informed consent obtained. Ochoa's test performed, good collateral wrist flow. Versed and Fentanyl given for sedation. Right wrist prepped, 1% lidocaine given. Using modified seldinger technique, the right radial artery was accessed and a 6f sheath placed. Through the sheath, a j-wire was advanced with a [place] catheter and then a JR4 to engage the LM and RCA respectively and images obtained w injection of contrast. The JR4 crossed the aortic valve and pressures measured including a pullback. It was felt appropriate to proceed to a PCI of the first diagonal vessel. A JL3.5 guide engaged the LM. Heparin given and ACT checked, a Luge wire crossed the lesion, a 2.0x12 balloon inflated, and then a 2.5x12 mm stent placed. Angiography performed in multiple views including a wire out shot demonstrating good apposition of the stent and no evidence of dissection. Nitro 200 mcg administered through the sidearm of the sheath, and then the sheath was removed and a TR band placed. She left the procedure room in stable condition. FINDINGS: LM- normal LAD - 40% mid lesion, Ostial diag 95% lesion with GONZALO 3 flow, lesion length 8 mm LCX - moderate sized, distal disease diffusely RCA - small but dominant vessel LVEDP - 21 EDDIE MCDANIELS September 19, 2018 08:40
[2018-09-19] MEDS: TICAGRELOR 90 MG TABLET PO SCH ×2 (09:00→20:13)
[2018-09-19] MEDS: LISINOPRIL 5 MG TAB PO SCH (09:00)
[2018-09-19] MEDS: METOPROLOL (XL) 50 MG TAB PO SCH (09:00)
[2018-09-19] MEDS: INSULIN ASPART [NOVOLOG] 3 ML PEN SC SCH ×4 (09:13→20:12)
[2018-09-19] MEDS ORDERED: TICA90TA PO (09:48)
--- NOTE | 2018-09-19 09:53 | PN ---
Date/Time of Note Date/Time of Note DATE: 09/19/18 TIME: 09:51 Subjective Doing well following PCI. No chest pain. Objective Vitals Vital Signs Date Temp Pulse Resp B/P (MAP) Pulse Ox O2 O2 Flow FiO2 Time Delivery Rate 09/19/18 74 19 115/46 96 Room Air 09:22 (69) 09/19/18 98.0 08:32 Intake and Output 09/18/18 09/18/18 09/19/18 1515:00 23:00 07:00 IntakeIntake Total 750 ml 300 ml BalanceBalance 750 ml 300 ml Clear to auscultation bilaterally Regular rate and rhythm Soft nontender nondistended normoactive bowel sounds No edema Nonfocal Results Result Diagram: 09/19/18 0709/19/18 0706 Medications Medications Current Medications Diagnostic Test (Pha) (Accu-Chek) 1 ea 02 XX ; Start 09/18/18 at 02:00 Insulin Aspart (Novolog Insulin Pen) NOVOLOG *MODERATE* ALGORITHM WITH MEALS BEDTIME SC Last administered on 09/19/18at 09:13; Admin Dose 6 UNIT; Start 09/17/18 at 08:00 Aspirin (Halfprin) 162 mg DAILY PO Last administered on 09/18/18at 08:20; Admin Dose 162 MG; Start 09/17/18 at 09:00 Lisinopril (Zestril) 2.5 mg DAILY PO Last administered on 09/18/18at 08:20; Admin Dose 2.5 MG; Start 09/17/18 at 09:00 Miscellaneous Information 1 ea NOTE XX ; Start 09/17/18 at 04:30 Glucose (Glutose) 15 gm Q15M PRN PO DECREASED GLUCOSE; Start 09/17/18 at 04:30 Glucose (Glutose) 22.5 gm Q15M PRN PO DECREASED GLUCOSE; Start 09/17/18 at 04:30 Dextrose (D50w Syringe) 25 ml Q15M PRN IV DECREASED GLUCOSE; Start 09/17/18 at 04:30 Dextrose (D50w Syringe) 50 ml Q15M PRN IV DECREASED GLUCOSE; Start 09/17/18 at 04:30 Glucagon (Glucagen) 1 mg Q15M PRN IM DECREASED GLUCOSE; Start 09/17/18 at 04:30 Glucose (Glutose) 15 gm Q15M PRN BUCCAL DECREASED GLUCOSE; Start 09/17/18 at 04:30 Metoprolol Succinate (Toprol Xl) 50 mg DAILY PO Last administered on 09/18/18at 08:21; Admin Dose 50 MG; Start 09/17/18 at 09:00 Atorvastatin Calcium (Lipitor) 40 mg HS PO Last administered on 09/18/18at 20:16; Admin Dose 40 MG; Start 09/17/18 at 21:00 Sodium Chloride 1,000 ml @ 75 mls/hr [id number] IV Last administered on 09/19/18at 00:52; Admin Dose 75 MLS/HR; Start 09/19/18 at 01:00 Acetaminophen (Tylenol Tab) 650 mg Q4H PRN PO MILD PAIN(1-3)OR ELEVATED TEMP Last administered on 09/18/18at 03:48; Admin Dose 650 MG; Start 09/17/18 at 16:28 Ticagrelor (Brilinta) 90 mg BID PO ; Start 09/19/18 at 09:00 Sodium Chloride 1,000 ml @ 75 mls/hr [id number] IV ; Start 09/19/18 at 08:29; Stop 09/19/18 at 21:48 VTE Prophylaxis Risk score (from Nsg)>0 risk: 3 SCD applied (from Nsg): Yes Lines/Catheters IV Catheter Type: Saline Lock Méndez in Place: No Assessment/Plan Assessment/Plan 67-year-old female with acute non-STEMI Status post PCI and stent placement to diagonal Hypertension Hyperlipidemia Type 2 diabetes mellitus Continue current therapy Brilinta 90 mg twice daily Discharge planning in a.m. Case was discussed with java spring developer DYLON NOLAN MD September 19, 2018 09:53
[2018-09-19] MEDS: ASPIRIN (EC) 81 MG TAB PO SCH (10:00)
[2018-09-19] MEDS ORDERED: ASPIRIN (EC) 81 MG TAB PO SCH (10:00)
--- NOTE | 2018-09-19 11:42 | CONS ---
Assessment/Plan Assessment/Plan Hospital Course (Demo Recall) Non-ST elevation [place] CAD status post PCI to diagonal 09/19/2018 Preserved ejection fraction -Patient status post PCI to [place] today and has been loaded with Brilinta -Continue dual antiplatelet therapy for minimum 1 year to maintain stent patency -Continue statin therapy -Beta-blockers heart rate and blood pressure permits, HUNG inhibitor as renal function and blood pressure permits -Case management involvement to confirm approval of Brilinta prior to discharge. Patient cannot be discharged until Brilinta has been confirmed approved and physically available for the patient in outpatient pharmacy Consultation Date/Type/Reason Admit Date/Time September 19, 2018 at 08:46 Initial Consult Date Type of Consult Cardiology Requesting Provider: DYLON NOLAN MD Date/Time of Note DATE: 09/19/18 TIME: 11:40 24 HR Interval Summary Free Text/Dictation Denies chest pain, shortness of breath, palpitations Exam/Review of Systems Vital Signs Vitals Vital Signs Date Temp Pulse Resp B/P (MAP) Pulse Ox O2 O2 Flow FiO2 Time Delivery Rate 09/19/18 80 16 116/50 96 Room Air 09:57 (72) 09/19/18 98.0 08:32 Intake and Output 09/18/18 09/18/18 09/19/18 1515:00 23:00 07:00 IntakeIntake Total 750 ml 300 ml BalanceBalance 750 ml 300 ml Exam Constitutional: alert, oriented (No apparent distress) Head: normocephalic Respiratory: clear to auscultation, normal air movement Cardiovascular: regular rate and rhythm (S1-S2 heard) Gastrointestinal: soft, non-tender, bowel sounds Extremities: other (TR band right wrist) Labs Result Diagram: 09/19/18 0706 09/19/18 0706 Results 24hrs Laboratory Tests Test 09/18/18 11:57 09/18/18 17:06 09/18/18 20:15 09/19/18 02:05 Bedside Glucose 238 H 185 253 H 183 Test 09/19/18 07:06 09/19/18 08:48 White Blood Count 6.0 Red Blood Count 4.29 Hemoglobin 12.3 Hematocrit 37.8 Mean Corpuscular Volume 88.1 Mean Corpuscular 28.7 L Hemoglobin Mean Corpuscular 32.5 Hemoglobin Concent Red Cell Distribution 14.1 Width Platelet Count 237 Mean Platelet Volume 11.6 H Immature Granulocytes % 0.200 Neutrophils % 60.3 Lymphocytes % 27.9 Monocytes % 9.1 Eosinophils % 2.0 Basophils % 0.5 Nucleated Red Blood 0.0 Cells % Immature Granulocytes # 0.010 Neutrophils # 3.6 Lymphocytes # 1.7 Monocytes # 0.6 Eosinophils # 0.1 Basophils # 0.0 Nucleated Red Blood 0.0 Cells # Sodium Level 143 Potassium Level 3.9 Chloride Level 108 Carbon Dioxide Level 28 Anion Gap 7 Blood Urea Nitrogen 14 Creatinine 0.68 Est Glomerular Filtrat > 60 Rate mL/min Glucose Level 208 Calcium Level 9.5 Bedside Glucose 224 H Medications Medications Current Medications Diagnostic Test (Pha) (Accu-Chek) 1 ea 02 XX ; Start 09/18/18 at 02:00 Insulin Aspart (Novolog Insulin Pen) NOVOLOG *MODERATE* ALGORITHM WITH MEALS BEDTIME SC Last administered on 09/19/18at 09:13; Admin Dose 6 UNIT; Start 09/17/18 at 08:00 Lisinopril (Zestril) 2.5 mg DAILY PO Last administered on 09/18/18at 08:20; Admin Dose 2.5 MG; Start 09/17/18 at 09:00 Miscellaneous Information 1 ea NOTE XX ; Start 09/17/18 at 04:30 Glucose (Glutose) 15 gm Q15M PRN PO DECREASED GLUCOSE; Start 09/17/18 at 04:30 Glucose (Glutose) 22.5 gm Q15M PRN PO DECREASED GLUCOSE; Start 09/17/18 at 04:30 Dextrose (D50w Syringe) 25 ml Q15M PRN IV DECREASED GLUCOSE; Start 09/17/18 at 04:30 Dextrose (D50w Syringe) 50 ml Q15M PRN IV DECREASED GLUCOSE; Start 09/17/18 at 04:30 Glucagon (Glucagen) 1 mg Q15M PRN IM DECREASED GLUCOSE; Start 09/17/18 at 04:30 Glucose (Glutose) 15 gm Q15M PRN BUCCAL DECREASED GLUCOSE; Start 09/17/18 at 04:30 Metoprolol Succinate (Toprol Xl) 50 mg DAILY PO Last administered on 09/18/18at 08:21; Admin Dose 50 MG; Start 09/17/18 at 09:00 Atorvastatin Calcium (Lipitor) 40 mg HS PO Last administered on 09/18/18at 20:16; Admin Dose 40 MG; Start 09/17/18 at 21:00 Sodium Chloride 1,000 ml @ 75 mls/hr [id number] IV Last administered on 09/19/18at 00:52; Admin Dose 75 MLS/HR; Start 09/19/18 at 01:00 Acetaminophen (Tylenol Tab) 650 mg Q4H PRN PO MILD PAIN(1-3)OR ELEVATED TEMP Last administered on 09/18/18at 03:48; Admin Dose 650 MG; Start 09/17/18 at 16:28 Ticagrelor (Brilinta) 90 mg BID PO ; Start 09/19/18 at 09:00 Sodium Chloride 1,000 ml @ 75 mls/hr [id number] IV ; Start 09/19/18 at 08:29; Stop 09/19/18 at 21:48 Aspirin (Halfprin) 81 mg DAILY PO ; Start 09/19/18 at 10:00 Kike Berrios DO September 19, 2018 11:42
[2018-09-19] MEDS: ATORVASTATIN 40 MG TAB PO SCH (20:04)
[2018-09-19] MEDS: ACETAMINOPHEN 325 MG TAB PO PRN (23:13)
[2018-09-20] VITALS (7 sets, daily range): BP systolic 140–145; BP diastolic 67–74; PULSE 66–97; RESP 20
[2018-09-20] MEDS: ACCU-CHEK XX SCH (02:23)
[2018-09-20] MEDS: SOD CHLORIDE 0.9% 1,000 ML IV SCH (03:53)
[2018-09-20] MEDS: INSULIN ASPART [NOVOLOG] 3 ML PEN SC SCH ×2 (07:40→11:41)
[2018-09-20] MEDS: METOPROLOL (XL) 50 MG TAB PO SCH (08:43)
[2018-09-20] MEDS: LISINOPRIL 5 MG TAB PO SCH (08:43)
[2018-09-20] MEDS: ASPIRIN (EC) 81 MG TAB PO SCH (08:44)
[2018-09-20] MEDS: TICAGRELOR 90 MG TABLET PO SCH (08:53)
[2018-09-20] MEDS ORDERED: ATOR40TA68 PO (10:31)
[2018-09-20] MEDS ORDERED: ASPI-1044 PO (10:31)
[2018-09-20] MEDS ORDERED: METO-319 PO (10:31)
[2018-09-20] MEDS ORDERED: INSU100I17 SQ (10:31)
--- NOTE | 2018-09-20 10:32 | PDOCDIS ---
Discharge Instructions CONDITION [id number] Patient Condition: [id number] Good HOME CARE INSTRUCTIONS: [id number] Diet Instructions: [id number] Activity Restrictions: [id number] Slowly Increase Activity FOLLOW UP/APPOINTMENTS Follow-up Plan pcp [address] Burdick 1 week Tavo 1 week DYLON NOLAN MD September 20, 2018 10:32
[2018-09-20] MEDS ORDERED: METF100010 PO (10:37)
--- NOTE | 2018-09-20 15:58 | RADRPT ---
Vent Rate: 86 bpm RR Interval: 700 msec [place] Interval: 142 msec QRS Duration: 86 msec QT Interval: 375 msec QTC Interval: 448 msec P-R-T [place]: 79 - 47 - 81 degrees Sinus rhythm...normal P axis, V-rate 50- 99 Electronically Signed By: Kike Berrios
--- NOTE | 2018-09-20 19:46 | DS ---
DATE OF ADMISSION: 09/19/2018 DATE OF DISCHARGE: 09/20/2018 DISCHARGE DIAGNOSES: 1. Acute non-ST elevation myocardial infarction. 2. Status post PCI and stent placement to diagonal artery. 3. Hypertension. 4. Type 2 diabetes mellitus. 5. Hyperlipidemia. HOSPITAL COURSE: A 67-year-old female with multiple cardiac risk factors including hypertension, typ e 2 diabetes mellitus and hyperlipidemia, presented to the emergency room with complaints of chest pr essure. The patient was diagnosed with acute non-ST elevated myocardial infarction. She was seen in consultation by the cardiology group. The patient was taken to the cardiovascular lab director and underwent PCI and s tent placement to the diagonal artery. She was started on Brilinta. Baby aspirin was continued. A 2D echo showed mild concentric left ventricular hypertrophy with normal systolic function. There w as evidence of grade I diastolic dysfunction. The patient was also noted to have poorly controlled b lood sugars. I increased the short long-acting insulin to 10 units before each meal and also increas ed the metformin to 1000 mg twice daily. Toprol-XL was increased to 50 mg daily. The patient is in a stable condition for discharge. MEDICATIONS ON DISCHARGE: 1. Aspirin 81 mg daily. 2. Brilinta 90 mg b.i.d. 3. Atorvastatin 40 mg at bedtime. 4. Apidra SoloStar 10 units before each meal. 5. Metformin 1000 mg b.i.d. 6. 20 units at bedtime. 7. Toprol-XL 50 mg daily. 8. Ascorbic acid 500 mg daily. 9. Vitamin D supplement 10. Lisinopril 2.5 mg daily. FOLLOWUP: 1. Follow up with PCP in 1 week. 2. Follow up with Dr. Burdick in 1 week. 3. Follow up with endocrine for further or management of hyperglycemia. DISCHARGE INSTRUCTIONS: Adhere to cardiac, diabetic diet. Dictated By: DYLON NOLAN MD SK/NTS Conf#: [id number] DID#: [id number] CC: ASIM BURDICK MD;*EndCC*
--- NOTE | 2018-09-21 10:11 | RADRPT ---
Vent Rate: 66 bpm RR Interval: 916 msec WI Interval: 146 msec QRS Duration: 85 msec QT Interval: 437 msec QTC Interval: 457 msec P-R-T Cammal: 70 - 43 - 80 degrees Sinus rhythm...normal P axis, V-rate 50- 99 Electronically Signed By: Kike Berrios
== END 2018-09-20 12:58 | disposition home or self-care (01) | DRG 247 ==
LOC: E/R 23:22 → 6WM 09-17 00:58 → OBSVTOIN 09-19 08:46
PROVIDERS: ADMIT Internal Medicine; ATTEND Internal Medicine
PROC: B211YZZ Fluoroscopy of Multiple Coronary Arteries using Other Contrast (ICD-10-PCS; 2018-09-19)
PROC: B215YZZ Fluoroscopy of Left Heart using Other Contrast (ICD-10-PCS; 2018-09-19)
PROC: 027034Z Dilation of Coronary Artery, One Artery with Drug-eluting Intraluminal Device, Percutaneous Approach (ICD-10-PCS; principal; 2018-09-19 07:30)
PROC: 4A023N7 Measurement of Cardiac Sampling and Pressure, Left Heart, Percutaneous Approach (ICD-10-PCS; 2018-09-19 07:30)
DX: I21.4 Non-ST elevation (NSTEMI) myocardial infarction (principal); I25.10 Atherosclerotic heart disease of native coronary artery without angina pectoris; I10 Essential (primary) hypertension; E11.65 Type 2 diabetes mellitus with hyperglycemia; R00.0 Tachycardia, unspecified; E66.9 Obesity, unspecified; Z68.31 Body mass index [BMI] 31.0-31.9, adult; E78.5 Hyperlipidemia, unspecified; Z79.4 Long term (current) use of insulin; Z79.82 Long term (current) use of aspirin
CPT/HCPCS: 36415; 71045; 80048; 80053; 80061; 82962; 83036; 83690; 84484; 85025; 92928; 93005; 93306; 93458; 93970; 96374; G0378; C1725; C1874; C1887; J1644; J1815; J1885; J2250; J3010; J7030; J7040; Q9967